=== PATIENT | male | born 1950 | race Two or more races ===

== ENCOUNTER → 2020-10-28 12:46 | Outpatient (BNVA) | payer MEDICARE, SELFPAY | PROVIDERS: Visit Provider Urology | DX: N40.1 Benign prostatic hyperplasia with lower urinary tract symptoms (principal); N13.8 Other obstructive and reflux uropathy; R35.1 Nocturia; E11.9 Type 2 diabetes mellitus without complications | CPT/HCPCS: 51798; 81002; 99212 ==

== ENCOUNTER → 2021-08-09 13:44 | Outpatient (BNVA) | payer MEDICARE, SELFPAY | PROVIDERS: PCP Internal Medicine; Visit Provider Urology | DX: N40.1 Benign prostatic hyperplasia with lower urinary tract symptoms (principal); R35.1 Nocturia; Z79.899 Other long term (current) drug therapy | CPT/HCPCS: 51798; 99212 ==

== ENCOUNTER → 2022-08-15 13:29 | Outpatient (BNVA) | payer MEDICARE, SELFPAY | PROVIDERS: PCP Internal Medicine; Visit Provider Urology | DX: N40.1 Benign prostatic hyperplasia with lower urinary tract symptoms (principal); R35.1 Nocturia | CPT/HCPCS: 51798; 99212 ==

== ENCOUNTER 2023-08-21 13:13 | Outpatient (AMB) | payer MEDICARE, SELFPAY ==
--- NOTE | 2023-08-21 13:16 | A.OFFVIS_ITS ---
Intake Visit Reasons: 1Y PVR Intake Note: Patient presents to the office today for a 1 year PVR. Urology Med: Terazosin Antibiotic Allergy: None Blood Thinner: Aspirin PVR: 29ml Allergies No Known Allergies Allergy (Verified 08/21/23 13:16) Medication List - Last Reconciled 08/21/23 by Shaka Duenas MD aspirin (Adult Low Dose Aspirin) 81 mg PO DAILY atorvastatin 20 mg PO DAILY lisinopril 5 mg PO DAILY metoprolol tartrate 12.5 mg PO BID metoprolol tartrate 50 mg PO DAILY mv,Ca,eto-difb-VA-lycopene 8 mg iron- 200 mcg-600 mcg (Centrum Men) tabs PO pantoprazole 40 mg PO DAILY terazosin 5 mg PO BEDTIME 90 days zolpidem 10 mg PO BEDTIME PRN HPI Comments Details: ?Gary MOYA is a very pleasant [place] with his . He is a patient of Dr Bhagat. He is seen for the following urologic conditions. - lower urinary tract symptoms Yearly follow-up Remains on daily terazosin Happy with current management CHAKA normal External PSA 1.1 - only needs to get it checked every few years Recent elevation of HbA1c 6.5 Discussed reducing carbohydrates. Lower Urinary Tract Symptoms:? Will remain on terazosin as needed ? Current visit is for?further evaluation of, lower urinary tract symptoms - initial symptoms predominate irritative symptoms.? Current treatment includes?alpha lucinda, , terazosin 5mg.? Prior treatments include?medication, alpha blockers, flomax/tamsulosin.? Prostate Symptom Score?10/12 , Moderate (9-19), Bother 3 ?11/12 , Mild (0-8), Bother 2.? Symptoms include?10/12 , incomplete emptying, nocturia (>2), and are progressing ?11/12 , incomplete emptying, nocturia (>2), and are improving.? Results from testing include? cystoscopy ?Trilobar hypertrophy ? renal/bladder us ?Yes ? date ?10/16/2017 ? PVR ?50 ? prostate size ?50 lobulated ? PSA?11/12 0.8.? Prostate volume?30-50gm.? Associated conditions? CAD ?No ? CVA ?Yes ? Testing at next visit will include?bladder scan [facility] Medical History Diabetes mellitus Heart attack Nocturia Benign prostatic hyperplasia with lower urinary tract symptoms Surgical History History of surgery Family History Father No problems noted. Mother Brain cancer Social History Patient Tobacco Use Status: Never used Tobacco Review of Systems Const Denies chills and Denies fever(s) Card Reports no additional complaints and Denies syncope Resp Denies cough GI Denies abdominal pain and Denies heartburn Reports as per HPI and Denies change in libido Neuro Denies syncope Psych Denies change in libido Endo Denies change in libido Physical Exam Const General: cooperative, healthy appearing, comfortable and no acute distress Orientation/consciousness: patient oriented x3 HEENT Face and sinus: Yes normal facial exam Mouth: moist mucous membranes Neck Neck: Yes normal visual inspection, Yes full ROM and Yes trachea midline Chest Chest palpation & inspection: normal inspection of the chest Resp Effort & Inspection: normal respiratory effort, able to speak in complete sentences and no respiratory distress GI Inspection: Yes normal to inspection Back/Spine/Pelvis Cervical Spine: normal cervical lordosis Thoracic/Lumbar Spine: thoracic and lumbar spine normal to inspection Skin General skin exam: no rashes or lesions noted Neuro General: patient oriented x3, gait normal, tone normal and moves all extremities Extrem General: Yes normal to inspection and Yes capillary refill normal Office Procedures Post Void Residual Post Residual Void Post Void Residual (PVR): 29 [id number] Void Residual by ultrasound Assessment & Plan Assessment & Plan (1) Nocturia: Code(s): R35.1 - Nocturia Category: Medical (2) Benign prostatic hyperplasia with lower urinary tract symptoms: Code(s): N40.1 - Benign prostatic hyperplasia with lower urinary tract symptoms Category: Medical Plan Twelve month follow-up PVR Orders: Orders AMB Post Void Residual by ultrasound Today N40.1 - Benign prostatic hyperplasia with lower urinary tract symptoms Medications: Refilled terazosin 5 mg PO BEDTIME 90 days 90 caps 3RF N40.1 - Benign prostatic hyperplasia with lower urinary tract symptoms Patient Instructions: Imaging studies, laboratory and physical exam results were discussed and reviewed in detail. No major barriers to patient understanding were identified. An opportunity to ask questions regarding the treatment plan was provided. All questions were answered. The patient expressed understanding and agreement with the above treatment plan. The patient is aware they should contact our office by phone for worsening of their current condition or the appearance of new urologic symptoms. Compliance is encouraged with any medications and followup testing that is ordered. It is a privilege to participate in the urologic care of your patient. If you have any questions or concerns regarding treatment for the above conditions, or other urologic issues, please do not hesitate to contact me. The office telephone contact is [phone]. This note is constructed using voice recognition software. While every effort lugo s been made to ensure accuracy creative writing professor errors may have been included. Yours sincerely, Dr Shaka Duenas MD, [facility] - Urology Providers of Expert, Compassionate Care for the Genitourinary System Coding Level of Care Code Est Pt Level 4 (24269) Diagnoses Nocturia R35.1 Benign prostatic hyperplasia with lower urinary tract symptoms N40.1 CPT Codes Post Residual Void - PVR CPT Code: 59732-[id number] Void Residual by ultrasound ([id number])
== END 2023-08-21 13:40 | disposition home or self-care (01) ==
PROVIDERS: PCP Internal Medicine; Visit Provider Urology
DX: N40.1 Benign prostatic hyperplasia with lower urinary tract symptoms (principal); R35.1 Nocturia
CPT/HCPCS: 99213

== ENCOUNTER → 2023-08-21 13:13 | Outpatient (BNVA) | payer MEDICARE, SELFPAY | PROVIDERS: PCP Internal Medicine; Visit Provider Urology | DX: N40.1 Benign prostatic hyperplasia with lower urinary tract symptoms (principal); R35.1 Nocturia | CPT/HCPCS: 51798; 99212 ==

== ENCOUNTER 2024-09-04 10:32 | Outpatient (AMB) | payer MEDICARE, SELFPAY ==
--- OUTSIDE RECORDS SUMMARY | 2024-09-04 11:04 | XMS_ITS | Patient Health Record ---
Author Organization [facility] Address [address] [facility] [address] [place] [address] Care Team Providers Care Technical Writing Lead/Mgr Name Role Phone Cari Tavares Primary Care Provider Marc Villareal F.A.C.C. Unavailable [phone] Migration, Provider Unavailable Unavailable Allergies No Known Allergies Reason For Referral No Information Medications Medication SIG (Take, Route, Frequency, Duration) Notes Start Date End Date Status Cranberry 250 MG Tablet as directed Orally Active Centrum Silver - Tablet as directed Orally Active amLODIPine Besylate 2.5 MG Tablet 1 tablet Orally Once a day; Duration: 90 days 12/11/2023 Active Metoprolol Tartrate 25 MG Tablet 1 tablet with food Orally Twice a day; Duration: 90 days Active Farxiga 10 MG Tablet 1 tablet Orally Onc e a day Active Pantoprazole Sodium 40 MG Tablet Delayed Release 1 tablet 1/2 to 1 hour before morning meal Orally Once a day Active Lisinopril 5 MG Tablet 1 tablet Orally O nce a day Active Atorvastatin Calcium 20 MG Tablet 1 tablet Orally Once a day Active Aspirin 81 MG Tablet Chewable 1 tablet Orally Once a day Active Brilinta 90 MG Tablet 1 tablet Orally Tw ice a day; Duration: 90 days Active Immunizations Vaccine Route Administration Date Status Comme nts Pneumococcal polysaccharide PPV23 IM Intramuscular 02/08/2014 Administered Zoster Unknown 02/08/2014 Administered Social History Tobacco Use: Social History Observation Description Date Details (start date - stop date) Former Smoker NA - NA Social History Drug/Alcohol: Social Info Question Answer Notes Caffeine Intake: 1-2 cups per day Occasional Tobacco Use: Social Info Question Answer Notes Tobacco Control (Standard) Tobacco use: Former smoker Additional Details Category Social Info Options Details Miscellaneous: Exercise: No routine ex ercise Occupation: retired Drug/Alcohol: Do you smoke marijuana? Den ies Do you drink alcohol? No Section Notes: Alcohol Use Patient uses alcohol occasional Tobacco Status Patient is a former smoker Quit in: 20 yrs ago Exercise: no routine exercise. Marital Status: . Lives with: spouse. Illicit Drug Use Patient/Family reports: No illicit drug use Caffeine: occasional. Drugs: none. Children: yes x2. 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 Alcohol Use Patient uses alcohol occasional Tobacco Status Patient is a former smoker Quit in: 20 yrs ago Exercise: no routine exercise. Marital Status: . Lives with: spouse. Illicit Drug Use Patient/Family reports: No illicit drug use Caffeine: occasional. Drugs: none. Children: yes x2. 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 Problems Problem Type SNOMED Code ICD Code Onset Dates Problem Status W/U Status Risk Notes Problem Peripheral vascular disease (285508674) PAD (peripheral artery disease) (I73.9) Active confirmed Problem Essential hypertension (62531523) Essential hypertension (I10) Active confirmed Problem Heart murmur (82821978) Cardiac murmur (R01.1) Active confirmed Problem Angina co-occurrent and due to coronary arteriosclerosis (03880243901204916) Coronary artery disease of [place] artery of [place] heart with stable angina pectoris (I25.118) Active confirmed Problem Hyperlipidaemia (28866383) Hyperlipidemia, unspecified hyperlipidemia type (E78.5) Active confirmed Problem History of placement of stent for coronary artery disease (situation) (565035972) History of coronary artery stent placement (Z95.5) Active confirmed Problem Diminished pulse s in lower extremity (R09.89) Active confirmed Problem Hypertensive heart disease without congestive heart failure (48832841) Hypertensive heart disease without heart failure (I11.9) Active confirmed Problem Atherosclerotic heart disease of [place] coronary artery without angina pectoris (069529465661952) Atherosclerotic heart disease of [place]osh[place] coronary artery without angina pectoris (I25.10) Active confirmed Problem Angina co-occurrent and due to coronary arteriosclerosis (disorder) (16527135703851308) Atherosclerotic heart disease of [place] coronary artery with other forms of angina pectoris (I25.118) Active confirmed Problem First degree atrioventricular block (289355599) Atrioventricular block, first degree (I44.0) Active confirmed Problem Embolism from thrombosis of vein of lower extremity (801688021) Acute embolism and thrombosis of unspecified deep veins of unspecified lower extremity (I82.409) Active confirmed Problem Disorder of kidney and/or ureter (116114336) Disorder of kidney and ureter, unspecified (N28.9) Active confirmed Problem Heart murmur (finding) (48249576) Cardiac murmur, unspecified (R01.1) Active confirmed Problem Electrocardiogram abnormal (138148028) Abnormal electrocardiogram [ECG] [EKG] (R94.31) Active confirmed Problem Preoperative cardiovascular examination (381331816) Encounter for preprocedural cardiovascular examination (Z01.810) Active confirmed Vital Signs Heart Rate 87 /min 06/23/2024 Respiratory Rate 17 /min 06/23/2024 Height-cm 172.72 cm 06/23/2024 Oximetry 97 % 06/23/2024 Blood pressure diastolic 80 mm Hg 06/23/2024 Weight-kg 89.63 kg 06/23/2024 Height 68 in 06/23/2024 Blood pressure systolic 140 mm Hg 06/23/2024 Weight 197.6 lbs 06/23/2024 BMI 30.04 kg/m2 06/23/2024 Encounters Encounter Location Date Provider Diagnosis [facility] [place] [facility] [address] [place] [address], [place] [address] 12/10/2023 Marc Dubois Essential hypertensi on I10 ; Coronary artery disease of [place] artery of [place] heart with stable angina pectoris I25.118 ; Hyperlipidemia, unspecified hyperlipidemia type E78.5 ; History of coronary artery stent placement Z95.5 ; Cardiac murmur R01.1 ; Diminished pulses in lower extremity R09.89 and PAD (peripheral artery disease) I73.9 [facility] [place] [facility] [address] [place], [place] [address] [address] 12/12/2023 Marc Dubois [facility] [place] [facility] [address] [place] [address] 12/12/2023 Marc Dubois [facility] [place] [facility] [address] [place], [place] [address] [address] 12/17/2023 Marc Dubois Essential hypertensi on I10 ; Coronary artery disease of [place] artery of [place] heart with stable angina pectoris I25.118 ; Hyperlipidemia, unspecified hyperlipidemia type E78.5 ; History of coronary artery stent placement Z95.5 ; Cardiac murmur R01.1 ; Diminished pulses in lower extremity R09.89 and PAD (peripheral artery disease) I73.9 [facility] [place] [facility] [address] [facility] [place] [address] 01/16/2024 Marc Dubois Essential hypertensi on I10 ; Coronary artery disease of [place] artery of [place] heart with stable angina pectoris I25.118 ; Hyperlipidemia, unspecified hyperlipidemia type E78.5 ; History of coronary artery stent placement Z95.5 and PAD (peripheral artery disease) I73.9 [facility] [place] [facility] [address] [place] [address] 03/04/2024 Marc Dubois Coronary artery disease of [place] artery of [place] heart with stable angina pectoris I25.118 [facility] [place] [facility] [address] [place] [address] 03/24/2024 Marc Dubois Essential (primary) hypertension I10 ; Hyperlipidemia, unspecified E78.5 and History of coronary artery stent placement Z95.5 [facility] [place] [facility] [address] [place] [address], [place] [address] 06/23/2024 Marc Dubois Coronary artery disease of [place] artery of [place] heart with stable angina pectoris I25.118 ; History of coronary artery stent placement Z95.5 ; Essential hypertension I10 and Hyperlipidemia, unspecified hyperlipidemia type E78.5 [facility] [place] [facility] [address] [place] [address] 01/25/2024 Provider Migration [facility] [place] [facility] [address] [place] [address] 01/26/2024 Provider Migration [facility] [place] [facility] [address] [place] [address] 12/11/2023 Marc Dubois [facility] [place] [facility] [address] [place] [address] 12/11/2023 Marc Dubois [facility] [place] [facility] [address] [place] [address] 12/13/2023 Marc Dubois 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 Also, we are going to prescribe Nitrostat as needed for chest discomfort. We are going to reevaluate the patient next week, if he does not get better, I will have to perform a stress test on him. 12/10/2023 Essential hypertension (ICD-10 - I10) 12/17/2023 Essential hypertension (ICD-10 - I10) 01/16/2024 Essential hypertension (ICD-10 - I10) 01/16/2024 Coronary artery disease of [place] artery of [place] heart with stable angina pectoris (ICD-10 - I25.118) An exercise stress test is ordered to evaluate for significant scintigraphic CAD due to patient's symptoms suggestive of ischemia, such as chest discomfort and/or shortness of breath on exertion. With an exercise stress test, we will compare the amount of blood traveling to the heart during stress and at rest. It is useful in the delineation of regions of reversible myocardial ischemia and the presence of absence of infarcted myocardium. 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 Therefore, will order a chemical stress test. Patient who is not able to exercise due to an orthopedic condition, and/or LBBB or ventricular paced rhythm and/or deconditioning, is a candidate for a nuclear stress test, and this increases the accuracy of the test. A nuclear stress test is ordered to evaluate for significant scintigraphic CAD due to patient's symptoms suggestive of ischemia, such as chest discomfort and/or shortness of breath on exertion. 12/10/2023 Hyperlipidemia, unspecified hyperlipidemia type (ICD-10 - E78.5) 03/24/2024 History of coronary artery stent placement (ICD-10 - Z95.5) All NSAIDs can increase the risk of VA. I really caution him about using meloxicam, however, if he has to use it because of pain, he needs to understand that there is a small risk. My recommendation is to take Tylenol or even use some of those CBD creams if he can have someone to prescribe that for him. 06/23/2024 Essential hypertension (ICD-10 - I10) Patient stable, doing well, blood pressure and heart rate controlled.Discussed need for compliance with blood pressure medication, benefits and risks reviewed.Discussed weight & exercise management along with diet low in sodium and fat.Target LDL < 70. Follow lipids, glucose, LFTs level and A1C with PCP. Forward results to our office. Continue current medical management and risk factor modificationPatient verbally understands and agrees. 06/23/2024 Hyperlipidemia, unspecified hyperlipidemia type (ICD-10 - E78.5) 12/10/2023 History of coronary artery stent placement (ICD-10 - Z95.5) 12/17/2023 Hyperlipidemia, unspecified hyperlipidemia type (ICD-10 - E78.5) 01/16/2024 History of coronary artery stent placement (ICD-10 - Z95.5) Those EKG changes are probably because of the involving myocardial infarction in the right coronary artery stenting. I am not concerned about that. I will adjust his medications. His metoprolol will be Tartrate 25 mg BID; he was taking 1/2 tablet of metoprolol 50 mg twice a day. Discussed with patient about because of recent stent, he needs to be on dual anti platelet therapy UNINTERRUPTED for at least 1 year. If there is any issues, he was instructed to call our office. 12/17/2023 History of coronary artery stent placement (ICD-10 - Z95.5) 12/10/2023 Cardiac murmur (ICD-10 - R01.1) An echo will be performed to diagnose: 1) Hemodynamic severity 2) To evaluate LV/RV size and function 3) Evaluate or re-evaluate valve stenosis/or with changing symptoms 4) Re-evaluate asymptomatic patients with severe stenosis 01/16/2024 PAD (peripheral artery disease) (ICD-10 - I73.9) 12/17/2023 Cardiac murmur (ICD-10 - R01.1) 12/10/2023 Diminished pulses in lower extremity (ICD-10 - R09.89) As patient continues to have persistent bilateral claudication, recommend a lower extremity arterial duplex especially in view of abnormal segmental blood pressures. 12/17/2023 Diminished pulses in lower extremity (ICD-10 - R09.89) 12/10/2023 PAD (peripheral artery disease) (ICD-10 - I73.9) 12/17/2023 PAD (peripheral artery disease) (ICD-10 - I73.9) Plan Of Treatment Pending Test Test Name Order Date Electrocardiogram (EKG) 12/10/2023 Electrocardiogram (EKG) 01/16/2024 Myoview Nuclear Stress Test 03/04/2024 Future Test Test Name Order Date Echocardiogram 12/12/2023 Ultrasound : Artery Doppler Low Ext Bila t 12/12/2023 Lexiscan Stress Nuclear Test 12/17/2023 Next Appt Details Provider Name:Marc Dubios, 1 11:00:00 AM, [address], [place] [address], [place], [address], Insurance Providers Payer Name Payer Address Payer Phone Subscriber Number Group Number Insured Name Patient Relationship to Insured Coverage Start Date Coverage End Date [place] Part [place] [address] [place] [phone] [id number] Gadbois, Gary Self - patient is the insured 4 [facility] [address] [place] [phone] [id number] Gary Whitfield Self - patient is the insured 4 Medical (General) History Medical History History ICD Code Hypertensive heart disease without heart failure. Atherosclerotic heart diseas e of [place] coronary artery without angina pectoris Hyperlipidemia Myocardial infarct, old 1 St degree AV block. Mild CRI Covid 19, 05/17. Surgical History Surgery Date(Month/Year) Cardiac Catheterization w/ PCI stenting ([facility]) 10/2003 cardiac cath w/ PCI stenting [facility]) 02/2014 Left leg Fasciotomy secondary to leg tra josé / DVT 08/2016 CARDIAC CATH x [facility] Hospitalization History Reason Date(Month/Year) Right LE DVT 01/28/14 NSTEMI 01/18/14
--- OUTSIDE RECORDS SUMMARY | 2024-09-04 11:04 | XMS_ITS | Patient Health Record ---
Author Organization [facility] enter Address [address] [place], [place] [address] Care Team Providers Care Endoscopy Registered Nurse Name Role Phone Dontae Marquez Primary Care Provider Reason For Referral No Information Medications Medication SIG (Take, Route, Frequency, Duration) Notes Start Date End Date Status Aspirin 81 MG Tablet 1 tablet Orally Onc e a day Active Metoprolol Tartrate 25 MG Tablet 1/2 tablet with food Orally Twice a day; Duration: 90 days 06/28/2015 Not-Taking Centrum Silver Tablet Orally Active Golytely 236 GM Solution Reconstituted as directed Orally take 8 ou every 10 minutes for a total of 4 liters; Duration: 1 dose 04/02/2016 Not-Taking Brilinta 60 MG Tablet 1 tablet Orally Tw ice a day Not-Taking [place] 3 1000 MG Capsule 1 capsule Orally Once a day Not-Taking Atorvastatin Calcium 20 MG Tablet 1 tablet Orally Once a day; Duration: 90 Active Enalapril Maleate 5 MG Tablet 1 tablet Orally Once a day Active clonazePAM 0.5 MG Tablet 1 tablet Orally Twice a day; Duration: 90 days 05/21/2016 Not-Taking Pantoprazole Sodium 40 MG Tablet Delayed Release 1 tablet Orally Once a day; Duration: 90 days 06/28/2015 Active Lisinopril 10 MG Tablet 1 tablet Orally Once a day; Duration: 90 days 05/01/2016 Not-Takin g Lisinopril 10 MG Tablet 1 tablet Orally Once a day; Duration: 90 days 06/28/2015 Active Toprol XL 25 MG Tablet Extended Release 24 Hour 1 tablet Orally Once a day Active Immunizations Vaccine Route Administration Date Status Comme nts Flu vaccine no Preserv 3 and > Intramuscular 01/05/2014 Pe nding Social History Tobacco Use: Social History Observation Description Date Details (start date - stop date) Never Smoker NA - NA Social History Function Status Assessment D ate Social Info Question Answer Notes Function Status Assessment Date Function Status Assess ment Date 06/04/2017 Ambulatory Status Ambulatory Status Excellent Cognitive Status Cognitive Status Excellent ADL Last Reviewed Social Info Question Answer Notes ADL Toilet Independent Feeding Independent Dressing Independent Grooming Independent Physical Ambulation Independent Bathing Independent Functional Status Assessment Date 06/04/2017 Drugs/Alcohol: Social Info Question Answer Notes Alcohol Screen (Audit-C) Did you have a drink containing alcohol in the past year? Yes How often did you have a drink containing alcohol in the past year? 4 or more times a week (4 points) How many drinks did you have on a typical day when you were drinking in the past year? 1 or 2 drinks (0 point) How often did you have 6 or more drinks on one occasion in the past year? Never (0 point) Points 4 Interpretation Positive Drugs Have you used drugs other than those for medical reasons in the past 12 months? No Caffeine Intake: 1-2 cups per day Pain last reviewed Social Info Question Answer Notes Pain Last Reviewed Pain Assessment Date 06/04/2017 Instrumental Activities of D aily Living Social Info Question Answer Notes Cooking Cooking Independent Managing Finances Managing Finances Independent Doing Laundry Doing Laundry Independent Driving or Using public Transportation Driving or Using Public Transportation Independent Shopping Shopping Independent Managing Medications Managing Medications Independent Using Phones Using Phones Independent Doing Housework Doing Housework Independent Power of Manager Diabetes for Health Care Social Info Question Answer Notes Status Power of assistant attorney general: The patient d oes not have a power of assistant attorney general for health care. It was explained to the patient the importance of having an advanced care plan Advanced Care Planning Date 06/04/2017 Tobacco Use: Social Info Question Answer Notes Tobacco Use/Smoking Are you a nonsmoker Additional Findings: Tobacco Non-User Current no n-smoker Additional Details Category Social Info Options Details Drugs/Alcohol: Do you smoke marijuana? De nies Problems Problem Type SNOMED Code ICD Code Onset Dates Problem Status W/U Status Risk Notes Problem Hyperlipidemia (47240589) Hyperlipidemia (RxHCC) (E78.5) Active confirmed Problem Essential hypertension (86037619) Essential (primary) hypertension (RxHCC) (I10) Active confirmed Problem Hypertensive heart disease without congestive heart failure (17262773) Hypertensive heart disease without heart failure (RxHCC) (I11.9) Active confirmed Problem Old myocardial infarction (6233885) Old myocardial infarction (RxHCC) (I25.2) Active confirmed Problem Constipation (04538776) Constipation, unspecified (K59.00) Active confirmed Problem Type 2 diabetes mellitus with other specified complication (HCC) (E11.69) Active confirmed Problem Gastroesophageal reflux disease (049615685) Gastro-esophageal reflux disease without esophagitis (RxHCC) (K21.9) Active confirmed Problem Chronic kidney disease due to hypertension (103909642956025) Hypertensive chronic kidney disease with stage 1 through stage 4 chronic kidney disease (I12.9) Active confirmed Problem Chronic kidney disease stage 3 (106617122) Chronic kidney disease, stage 3 (HCC) (N18.3) Active confirmed Plan Of Treatment Pending Test Test Name Order Date Hemoglobin A1c 04/19/2015 Urine Complete Dipstick 04/19/2015 TSH 04/19/2015 Lipid Panel 04/19/2015 Comp. Metabolic Panel (14) 04/19/2015 CBC 04/19/2015 PSA, total 04/19/2015 Insurance Providers Payer Name Payer Address Payer Phone Subscriber Number Group Number Insured Name Patient Relationship to Insured Coverage Start Date Coverage End Date Medicare [address] [place] [address] [id number] Gary Whitfield Self - patient is the insured [facility] [address] [place] [address] [phone] [id number] Gary Whitfield Self - patient is the insured Medical (General) History Medical History History ICD Code Unspecified essential hypertension coronary artery disease GERD hyperlipidemia Surgical History Surgery Date(Month/Year) 2 stents 12/2013 Hospitalization History Reason Date(Month/Year) 2 stent 12/2013
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
--- NOTE | 2024-09-04 11:18 | A.OFFVIS_ITS ---
Intake Visit Reasons: 1yr/PVR Intake Note: Patient presents to the office today for a 1 year PVR. Urology Med: Terazosin Antibiotic Allergy: None Blood Thinner: Aspirin PVR: 14 [facility] Administrator Required: No Accompanied by: Spouse Allergies No Known Allergies Allergy (Verified 09/04/24 11:19) HPI Comments Details: ?Gary MOYA is a very pleasant [place] with his . He is a patient of Dr Bhagat. He is seen for the following urologic conditions. - lower urinary tract symptoms Yearly follow-up Remains on daily terazosin Low PVR 14 cc Happy with current management CHAKA normal External PSA 1.1 - only needs to get it checked every few years Recent elevation of HbA1c 6.5 Discussed reducing carbohydrates. Lower Urinary Tract Symptoms:? Will remain on terazosin as needed ? Current visit is for?further evaluation of, lower urinary tract symptoms - initial symptoms predominate irritative symptoms.? Current treatment includes?alpha lucinda, , terazosin 5mg.? Prior treatments include?medication, alpha blockers, flomax/tamsulosin.? Prostate Symptom Score?10/12 , Moderate (9-19), Bother 3 ?11/12 , Mild (0-8), Bother 2.? Symptoms include?10/12 , incomplete emptying, nocturia (>2), and are progressing ?11/12 , incomplete emptying, nocturia (>2), and are improving.? Results from testing include? cystoscopy ?Trilobar hypertrophy ? renal/bladder us ?Yes ? date ?10/16/2017 ? PVR ?50 ? prostate size ?50 lobulated ? PSA?11/12 0.8.? Prostate volume?30-50gm.? Associated conditions? CAD ?No ? CVA ?Yes ? Testing at next visit will include?bladder scan [facility] Medical History Diabetes mellitus Heart attack Nocturia Benign prostatic hyperplasia with lower urinary tract symptoms Surgical History History of surgery Family History Father No problems noted. Mother Brain cancer Social History Patient Tobacco Use Status: Never used Tobacco Coding
== END 2024-09-04 11:31 | disposition home or self-care (01) ==
LOC: HO.HUSH 10:33
PROVIDERS: PCP Internal Medicine; Visit Provider Urology
DX: Z13.9 Encounter for screening, unspecified (principal)

== ENCOUNTER → 2024-09-04 10:32 | Outpatient (BNVA) | payer MEDICARE, SELFPAY | PROVIDERS: PCP Internal Medicine; Visit Provider Urology | DX: N40.1 Benign prostatic hyperplasia with lower urinary tract symptoms (principal); R35.1 Nocturia; Z79.899 Other long term (current) drug therapy | CPT/HCPCS: 81003; 99212 ==